=== PATIENT | male | born 1935 | race Caucasian/White ===

== ENCOUNTER 2025-02-27 16:31 | Emergency (ER) | payer OTHER ==
[2025-02-27 17:14] VITALS: TEMP 98; BMI 24.0
[2025-02-27 18:40] LABS: BASOPHILS # 0.02 x10^3/uL (0.01-0.08); EOSINOPHIL % 1.8 % (0.8-7.0); EOSINOPHILS # 0.12 x10^3/uL (0.04-0.54); HEMATOCRIT 36.8 % (40.1-51.0); HEMOGLOBIN 11.8 g/dL (13.7-17.5); MCHC 32.1 g/dl (32.3-36.5); MEAN CELL VOLUME 94.4 fl (79.0-92.2); MEAN PLT VOLUME 10.7 fl (9.4-12.4); MONOCYTE % 10.7 % (5.3-12.2); PLATELET COUNT 153 x10^3/uL (163-337)
[2025-02-27 19:00] LABS: POTASSIUM 5.7 mmol/L (3.5-5.1)
[2025-02-27 19:02] LABS: CALCIUM 9.2 mg/dL (8.5-10.1)
[2025-02-27 19:04] LABS: ALBUMIN 3.3 g/dl (3.4-5.0); BLOOD UREA NITROGEN 33.1 mg/dL (7-18)
[2025-02-27 19:06] LABS: CREATININE 1.4 mg/dL (0.55-1.3)
[2025-02-27 19:07] LABS: BILIRUBIN,TOTAL 0.7 mg/dL (0.2-1)
[2025-02-27] MEDS ORDERED: SODIUM ZIRCONIUM CYCLOSILICATE (LOKELMA) 10 GM PACKET ONE (21:46)
[2025-02-27] MEDS: SODIUM ZIRCONIUM CYCLOSILICATE (LOKELMA) 5 GM PACKET PO ONE (21:53)
[2025-02-27 21:55] VITALS: BP 129/66; PULSE 82; RESP 16
[2025-02-28] MEDS ORDERED: SODIUM ZIRCONIUM CYCLOSILICATE (LOKELMA) 5 GM PACKET PO ONE (21:36)
== END 2025-02-27 22:26 | disposition home or self-care (01) ==
LOC: JER 16:31
DX: E87.5 Hyperkalemia (principal)
CPT/HCPCS: 36415; 80053; 84132; 85025; 93005; 93010; 99284-25

== ENCOUNTER 2025-03-17 13:57 | Inpatient (IN) | payer OTHER ==
[2025-03-17 14:53] LABS: ABSOLUTE IMMATURE GRANULOCYTES 0.09 x10^3/uL (0.0-0.031); BASOPHILS # 0.02 x10^3/uL (0.01-0.08); EOSINOPHIL % 0.1 % (0.8-7.0); EOSINOPHILS # 0.01 x10^3/uL (0.04-0.54); HEMATOCRIT 31.6 % (40.1-51.0); HEMOGLOBIN 10.1 g/dL (13.7-17.5); MEAN CELL VOLUME 94.3 fl (79.0-92.2); MONOCYTE # 0.43 x10^3/uL (0.30-0.82); MONOCYTE % 6.3 % (5.3-12.2); PLATELET COUNT 129 x10^3/uL (163-337); RDW 15.8 % (12.6-16.6)
[2025-03-17] MEDS ORDERED: ALBUTEROL SO4 2.5/IPRATROPIUM 0.5 INH SOL 3 ML VIAL.NEB. NEB ONE (15:27)
[2025-03-17] MEDS: ALBUTEROL SO4 2.5/IPRATROPIUM 0.5 INH SOL 3 ML VIAL.NEB. NEB SCH ×2 (15:30→20:13)
[2025-03-17 15:33] LABS: ALBUMIN 2.5 g/dl (3.4-5.0); BLOOD UREA NITROGEN 47.9 mg/dL (7-18); CALCIUM 8.6 mg/dL (8.5-10.1); MAGNESIUM 2.4 mg/dL (1.8-2.4); PHOSPHOROUS 2.2 mg/dL (2.5-4.9); POTASSIUM 4.1 mmol/L (3.5-5.1)
[2025-03-17 15:37] LABS: BILIRUBIN,TOTAL 1.3 mg/dL (0.2-1); TOT PROT 6.1 g/dl (6.4-8.2)
[2025-03-17 15:49] LABS: N-TERMINAL BNP 9166.6 pg/ml (5-450)
[2025-03-17 15:59] LABS: CREATININE 1.5 mg/dL (0.55-1.3)
[2025-03-17] MEDS ORDERED: AZITHROMYCIN IVPB 500 MG/250 ML BAG IVPB ONE (16:07)
[2025-03-17] MEDS ORDERED: CEFTRIAXONE 1 G/50 ML PREMIX 50 ML IVPB ONE (16:07)
[2025-03-17 16:13] LABS: HCV DIAGNOSTIC IN-HOUSE W/RFLX NON-REACTIVE (NONREACTIVE)
[2025-03-17 16:25] LABS: HIV INTERPRETATION NEGATIVE (NEGATIVE)
[2025-03-17] MEDS: AZITHROMYCIN IVPB 500 MG in DEXTROSE 5%-WATER - 250 ML IVPB ONE (16:29)
[2025-03-17] MEDS: CEFTRIAXONE 1 GM in DEXTROSE 5%-WATER - 100 ML IVPB ONE (16:29)
[2025-03-17] MEDS ORDERED: PIPERACILLIN/TAZOB 2.25 GM 2.25 GM/50 ML BAG IVPB ONE (16:30)
[2025-03-17] MEDS: PIPERACILLIN/TAZOB 2.25 GM 2.25 GM in DEXTROSE 5%-WATER - 50 ML IVPB SCH (17:21)
[2025-03-17] MEDS ORDERED: FUROSEMIDE 40 MG/4 ML INJECTABLE VIAL ONE (17:21)
[2025-03-17] MEDS: FUROSEMIDE 40 MG/4 ML INJECTABLE VIAL IVPUSH SCH (17:22)
[2025-03-17] MEDS: CARVEDILOL 25 MG TABLET (FP) PO SCH (21:37)
[2025-03-17] MEDS: ATORVASTATIN CA 40 MG TABLET (FP) PO SCH (21:38)
[2025-03-17] MEDS: APIXABAN 2.5 MG TABLET PO SCH (21:38)
[2025-03-17] MEDS ORDERED: SENNOSIDES 8.6MG TABLET (FP) PO PRN (21:51)
[2025-03-17] MEDS: SACUBITRIL/VALSARTAN 97 MG-103 MG TABLET PO SCH (22:05)
[2025-03-17] MEDS: SERTRALINE HCL 25 MG TABLET (FP) PO ONE (22:52)
[2025-03-18] MEDS: guaiFENesin 200 MG/10 ML 10 ML UNIT-DOSE CUPS PO ONE (01:29)
[2025-03-18] MEDS: EMPAGLIFLOZIN (JARDIANCE) 25 MG TABLET PO SCH (06:35)
[2025-03-18] MEDS: LEVOTHYROXINE NA 25 MCG TABLET (FP) PO SCH (06:35)
[2025-03-18] MEDS: TAMSULOSIN HCL 0.4 MG CAP PO SCH (08:40)
[2025-03-18] MEDS: SERTRALINE HCL 25 MG TABLET (FP) PO SCH (10:10)
[2025-03-18] MEDS: ALLOPURINOL 300 MG TABLET (FP) PO SCH (10:10)
[2025-03-18] MEDS: NAPH,MB-DB/K PH,MBDB POWDER PACKET PO SCH (12:32)
[2025-03-18 14:27] VITALS: BMI 24.5
[2025-03-18] MEDS: methylPREDNISolone NA SUCC 40 MG/1 ML VIAL IVPUSH SCH (15:22)
[2025-03-18] MEDS: ACETAMINOPHEN 1000 MG/100 ML BAG IVPB PRN (15:30)
[2025-03-18 16:00] LABS: ABSOLUTE IMMATURE GRANULOCYTES 0.07 x10^3/uL (0.0-0.031); BASOPHILS # 0.02 x10^3/uL (0.01-0.08); EOSINOPHIL % 0.1 % (0.8-7.0); EOSINOPHILS # 0.01 x10^3/uL (0.04-0.54); HEMOGLOBIN 10.6 g/dL (13.7-17.5); MCHC 33.1 g/dl (32.3-36.5); MEAN CELL VOLUME 92.5 fl (79.0-92.2); MEAN PLT VOLUME 10.7 fl (9.4-12.4); MONOCYTE # 0.52 x10^3/uL (0.30-0.82); MONOCYTE % 7.4 % (5.3-12.2); PLATELET COUNT 134 x10^3/uL (163-337); RDW 15.5 % (12.6-16.6)
[2025-03-18 16:21] LABS: POTASSIUM 3.6 mmol/L (3.5-5.1)
[2025-03-18 16:23] LABS: ALBUMIN 2.5 g/dl (3.4-5.0); BLOOD UREA NITROGEN 44.8 mg/dL (7-18); CALCIUM 8.4 mg/dL (8.5-10.1)
[2025-03-18 16:27] LABS: CREATININE 1.5 mg/dL (0.55-1.3)
[2025-03-18 16:29] LABS: BILIRUBIN,TOTAL 1.2 mg/dL (0.2-1)
[2025-03-18] MEDS: PIPERACILLIN/TAZOB 2.25 GM 2.25 GM in DEXTROSE 5%-WATER - 50 ML IVPB SCH (16:33)
[2025-03-18] MEDS: PIPERACILLIN/TAZOB 3.375 GM 3.375 GM in DEXTROSE 5%-WATER - 50 ML IVPB SCH (18:00)
[2025-03-19] MEDS ORDERED: ATORVASTATIN CA 20 MG TABLET (FP) ONE (21:10)
[2025-03-20 11:22] LABS: INR 1.36 (0.83-1.09); PROTHROMBIN TIME (PATIENT) 14.8 SEC (9.7-13.0)
[2025-03-21] MEDS: BACITRACIN ZINC 15 GM TUBE TOPICAL OINTMENT TP SCH (10:27)
[2025-03-21] MEDS ORDERED: PIPERACILLIN/TAZOBACTAM 3.375 GM VIAL IVPB ONE ×3 (10:30→17:30)
[2025-03-21] MEDS: PANTOPRAZOLE SODIUM 40 MG VIAL IVPUSH SCH (12:27)
[2025-03-21 12:38] LABS: ABSOLUTE IMMATURE GRANULOCYTES 0.13 x10^3/uL (0.0-0.031); BASOPHILS # 0.01 x10^3/uL (0.01-0.08); EOSINOPHIL % 0.2 % (0.8-7.0); EOSINOPHILS # 0.01 x10^3/uL (0.04-0.54); HEMATOCRIT 38.5 % (40.1-51.0); HEMOGLOBIN 11.9 g/dL (13.7-17.5); MCHC 30.9 g/dl (32.3-36.5); MEAN CELL VOLUME 97.7 fl (79.0-92.2); MONOCYTE # 0.28 x10^3/uL (0.30-0.82); MONOCYTE % 4.5 % (5.3-12.2); PLATELET COUNT 188 x10^3/uL (163-337); RDW 15.6 % (12.6-16.6)
[2025-03-21 12:59] LABS: POTASSIUM 4.8 mmol/L (3.5-5.1)
[2025-03-21 13:01] LABS: ALBUMIN 2.4 g/dl (3.4-5.0); CALCIUM 9.1 mg/dL (8.5-10.1)
[2025-03-21 13:02] LABS: BLOOD UREA NITROGEN 50.2 mg/dL (7-18)
[2025-03-21 13:05] LABS: CREATININE 1.8 mg/dL (0.55-1.3)
[2025-03-21 13:06] LABS: BILIRUBIN,TOTAL 0.9 mg/dL (0.2-1); TOT PROT 6.6 g/dl (6.4-8.2)
[2025-03-21 17:25] LABS: BODY FLUID MACROPHAGES 24 %; BODY FLUID MESOTHELIAL 13 %; BODY FLUID MONOCYTE 20 %
[2025-03-22] MEDS ORDERED: ALBUTEROL SO4 2.5/IPRATROPIUM 0.5 INH SOL 3 ML VIAL.NEB. NEB ONE (20:00)
[2025-03-22] MEDS: COLCHICINE 0.6 MG TAB PO ONE (22:41)
[2025-03-23 07:08] LABS: ABSOLUTE IMMATURE GRANULOCYTES 0.22 x10^3/uL (0.0-0.031); BASOPHILS # 0.01 x10^3/uL (0.01-0.08); HEMATOCRIT 33.2 % (40.1-51.0); HEMOGLOBIN 10.6 g/dL (13.7-17.5); MCHC 31.9 g/dl (32.3-36.5); MEAN CELL VOLUME 93.3 fl (79.0-92.2); MEAN PLT VOLUME 10.9 fl (9.4-12.4); MONOCYTE # 0.43 x10^3/uL (0.30-0.82); MONOCYTE % 6.2 % (5.3-12.2); PLATELET COUNT 197 x10^3/uL (163-337); RDW 15.2 % (12.6-16.6)
[2025-03-23 07:32] LABS: POTASSIUM 4.3 mmol/L (3.5-5.1)
[2025-03-23 07:48] LABS: CALCIUM 8.6 mg/dL (8.5-10.1)
[2025-03-23 07:49] LABS: ALBUMIN 2.2 g/dl (3.4-5.0); BLOOD UREA NITROGEN 50.3 mg/dL (7-18)
[2025-03-23 07:52] LABS: CREATININE 1.6 mg/dL (0.55-1.3)
[2025-03-23 07:53] LABS: BILIRUBIN,TOTAL 0.5 mg/dL (0.2-1); TOT PROT 5.6 g/dl (6.4-8.2)
[2025-03-23] MEDS: PANTOPRAZOLE 40 MG TABLET PO SCH (09:44)
[2025-03-23] MEDS: APIXABAN 2.5 MG TABLET PO SCH (09:44)
[2025-03-23] MEDS ORDERED: INSULIN GLARGINE (LANTUS) 100 UNITS/ML UNITS SQ ONE (10:51)
[2025-03-23] MEDS: COLCHICINE 0.6 MG TAB PO SCH (13:08)
[2025-03-23 19:07] LABS: BODY FLUID ALBUMIN 1.8 g/dL (Not Estab.)
[2025-03-25 06:58] LABS: ABSOLUTE IMMATURE GRANULOCYTES 0.28 x10^3/uL (0.0-0.031); BASOPHILS # 0.01 x10^3/uL (0.01-0.08); EOSINOPHIL % 0.1 % (0.8-7.0); EOSINOPHILS # 0.01 x10^3/uL (0.04-0.54); HEMATOCRIT 33.7 % (40.1-51.0); HEMOGLOBIN 10.7 g/dL (13.7-17.5); MCHC 31.8 g/dl (32.3-36.5); MEAN CELL VOLUME 95.5 fl (79.0-92.2); MEAN PLT VOLUME 11.4 fl (9.4-12.4); MONOCYTE # 0.38 x10^3/uL (0.30-0.82); MONOCYTE % 5.2 % (5.3-12.2); PLATELET COUNT 182 x10^3/uL (163-337)
[2025-03-25 07:14] LABS: CHLORIDE 100 mmol/L (98-107); POTASSIUM 4.6 mmol/L (3.5-5.1); SODIUM 134 mmol/L (136-145)
[2025-03-25 07:16] LABS: CALCIUM 8.5 mg/dL (8.5-10.1)
[2025-03-25 07:17] LABS: ALBUMIN 2.3 g/dl (3.4-5.0); ANION GAP 11 mmol/L (4-13); BLOOD UREA NITROGEN 50.8 mg/dL (7-18); CO2 23 mmol/L (21-32)
[2025-03-25 07:19] LABS: SGPT/ALT 59 U/L (13-61); URIC ACID 3.8 mg/dL (2.6-7.2)
[2025-03-25 07:20] LABS: CREATININE 1.4 mg/dL (0.55-1.3); SGOT/AST 22 U/L (15-37)
[2025-03-25 07:21] LABS: BILIRUBIN,TOTAL 0.5 mg/dL (0.2-1); TOT PROT 5.7 g/dl (6.4-8.2)
[2025-03-25 07:22] LABS: ALK PHOS 65 U/L (45-117)
[2025-03-25 07:30] LABS: GLUCOSE,RANDOM 438 mg/dL (74-106)
[2025-03-25] MEDS: INSULIN ASPART SLIDING SCALE (NOVOLOG) 1 VIAL SQ SCH (11:39)
[2025-03-25] MEDS: INSULIN GLARGINE (LANTUS) 100 UNITS/ML UNITS SQ ONE (18:17)
[2025-03-26] MEDS: INSULIN GLARGINE (LANTUS) 100 UNITS/ML UNITS SQ ONE (12:01)
[2025-03-26 12:37] LABS: HEMATOCRIT 34.1 % (40.1-51.0); HEMOGLOBIN 10.9 g/dL (13.7-17.5); MEAN PLT VOLUME 11.1 fl (9.4-12.4); PLATELET COUNT 203 x10^3/uL (163-337); RDW 15.4 % (12.6-16.6)
[2025-03-26 12:57] LABS: POTASSIUM 4.3 mmol/L (3.5-5.1)
[2025-03-26 12:59] LABS: ALBUMIN 2.2 g/dl (3.4-5.0); BLOOD UREA NITROGEN 48.2 mg/dL (7-18); CALCIUM 8.5 mg/dL (8.5-10.1)
[2025-03-26 13:02] LABS: CREATININE 1.3 mg/dL (0.55-1.3)
[2025-03-26 13:04] LABS: BILIRUBIN,TOTAL 0.4 mg/dL (0.2-1); TOT PROT 5.7 g/dl (6.4-8.2)
[2025-03-26] MEDS: LOPERAMIDE HCL 2 MG CAPSULE PO ONE (16:00)
[2025-03-26] MEDS: FUROSEMIDE 40 MG TABLET (FP) PO ONE (16:55)
[2025-03-26] MEDS: AMOX TR/POT CLAV 500MG/125MG TABLETS (FP) PO SCH (17:01)
[2025-03-26 23:59] LABS: POTASSIUM 4.3 mmol/L (3.5-5.1)
[2025-03-27] LABS: CALCIUM 9.2 mg/dL (8.5-10.1)
[2025-03-27 00:01] LABS: BLOOD UREA NITROGEN 46.7 mg/dL (7-18); MAGNESIUM 2.4 mg/dL (1.8-2.4)
[2025-03-27 00:04] LABS: CREATININE 1.4 mg/dL (0.55-1.3); PHOSPHOROUS 3.9 mg/dL (2.5-4.9)
[2025-03-27] MEDS: FUROSEMIDE 40 MG TABLET (FP) PO SCH (09:28)
[2025-03-28 07:19] LABS: POTASSIUM 4.3 mmol/L (3.5-5.1)
[2025-03-28 07:26] LABS: BLOOD UREA NITROGEN 45.6 mg/dL (7-18); CALCIUM 8.8 mg/dL (8.5-10.1)
[2025-03-28 07:30] LABS: CREATININE 1.5 mg/dL (0.55-1.3)
[2025-03-28 15:25] VITALS: BP 117/57; PULSE 76; RESP 18; TEMP 98.8
== END 2025-03-28 18:20 | disposition home or self-care (01) | DRG 291 ==
LOC: JER 13:57 → JERBED 16:11 → J4W 18:44 → OBSVTOIN 03-19 12:07
PROVIDERS: ADMIT Internal Medicine; ATTEND Internal Medicine
PROC: 0W9B3ZZ Drainage of Left Pleural Cavity, Percutaneous Approach (ICD-10-PCS; principal; 2025-03-21)
DX: I11.0 Hypertensive heart disease with heart failure (principal); J18.9 Pneumonia, unspecified organism; J90 Pleural effusion, not elsewhere classified; I48.21 Permanent atrial fibrillation; I48.92 Unspecified atrial flutter; E78.5 Hyperlipidemia, unspecified; E11.9 Type 2 diabetes mellitus without complications; F32.A Depression, unspecified; I25.10 Atherosclerotic heart disease of native coronary artery without angina pectoris; I50.9 Heart failure, unspecified; M10.9 Gout, unspecified; I50.22 Chronic systolic (congestive) heart failure; I35.0 Nonrheumatic aortic (valve) stenosis
CPT/HCPCS: 0241U-QW; 36415; 71045-TC-FY; 71250-TC; 76942; 80048; 80053; 82042; 82150; 82465; 82550; 82945; 82962; 83036; 83615; 83735; 83880; 83986; 84100; 84157; 84443; 84478; 84484; 84550; 85025; 85027; 85610; 86803; 87040; 87070; 87075; 87102; 87116; 87205; 87206; 87210; 87389; 88108; 88305-TC; 93005; 93010; 93306-TC; 94640; 97116-GP; 97162-GP; 99285-25; G0378